=== PATIENT | male | born 1960 | race Caucasian/White ===

== ENCOUNTER 2016-05-12 10:27 | Day surgery (SDC) | payer BC ==
[~2016-05-12] VITALS: Ht 190.5 cm; Wt 104.3 kg
[~2016-05-12 10:27] MED LIST: ALTACE5 MG PO; ASPIRIN EC325 MG PO; BYSTOLIC5 MG PO; Bystolic PO; CARDIZEM CD240 MG PO; CELECOXIB200 MG PO; ELIQUIS5 MG PO; Ecotrin PO; FISH OIL 1,0001 EAC7 PO; Feosol PO; Fish Oil PO; HYDROCODON-ACE1 EAC7 PO; LIPITOR40 MG PO; Lipitor PO; PRADAXA150 MG PO; Percocet 5/325,Endoc PO; SOTALOL AF80 MG PO; SOTALOL80 MG PO; Senokot S,Pericolace PO; celeBREX PO
== END 2016-05-12 13:30 | disposition home or self-care (01) ==
LOC: CATH 10:27
PROC: 5A2204Z Restoration of Cardiac Rhythm, Single (ICD-10-PCS; principal; 2016-05-12)
DX: I48.91 Unspecified atrial fibrillation (principal); I10 Essential (primary) hypertension; M19.90 Unspecified osteoarthritis, unspecified site
CPT/HCPCS: 93005

== ENCOUNTER 2017-05-12 02:25 | Emergency (ER) | payer BC ==
[~2017-05-12] VITALS: Ht 190.5 cm; Wt 105.5 kg
[2017-05-12 02:54] LABS: HEMATOCRIT 44.5 % (38.0-50.0); MCH 32.9 PG (29.0-34.0); MCV 91.6 FL (86-99); PLATELET COUNT 169 K/uL (156-360); RBC DIS.WIDTH-CV 11.9 % (11.8-14.6); RBC DIS.WIDTH-SD 39.8 % (39-53); RED BLOOD COUNT 4.86 M/uL (4.00-5.50); WHITE BLOOD COUNT 6.2 K/uL (4.1-10.2)
[2017-05-12 03:09] LABS: CHLORIDE 106 mEq/L (99-109); POTASSIUM 4.3 mEq/L (3.7-5.4); SODIUM 140 mEq/L (136-147)
[2017-05-12 03:11] LABS: GLUCOSE 117 mg/dL (70-99)
[2017-05-12 03:15] LABS: GFR ESTIMATE (CALCULATED) > 59 mL/min/ (58.99-99999); UREA NITROGEN (BUN) 16 mg/dL (9-23)
[2017-05-12 03:18] LABS: TROP-I INTERPRETATION NEGATIVE; TROPONIN-I < 0.01 ng/mL (0.0-0.30)
[2017-05-12 05:09] LABS: TROP-I INTERPRETATION NEGATIVE; TROPONIN-I < 0.01 ng/mL (0.0-0.30)
[2017-05-12 05:34] VITALS: BP 131/76
== END 2017-05-12 05:38 | disposition home or self-care (01) ==
LOC: EME 02:25
PROVIDERS: Emergency Medicine
DX: R07.9 Chest pain, unspecified (principal); R91.8 Other nonspecific abnormal finding of lung field; I10 Essential (primary) hypertension; E78.5 Hyperlipidemia, unspecified; Z82.49 Family history of ischemic heart disease and other diseases of the circulatory system
CPT/HCPCS: 71046; 80048; 84484; 85027; 85379; 93005; 99281; 99285